=== PATIENT | female | born 1990 | race Caucasian/White ===

== ENCOUNTER 2018-02-09 16:00 | Emergency (ER) | payer MEDICAID ==
[~2018-02-09] VITALS: Ht 160 cm; Wt 76.2 kg
[2018-02-09 16:23] VITALS: Ht 160 cm; Wt 76.2 kg
[2018-02-09 16:47] VITALS: BP 122/76
== END 2018-02-09 16:47 | disposition home or self-care (01) ==
LOC: ED 16:00
DX: M77.02 Medial epicondylitis, left elbow (principal); I88.9 Nonspecific lymphadenitis, unspecified; X58.XXXA Exposure to other specified factors, initial encounter; Y93.64 Activity, baseball; Y92.89 Other specified places as the place of occurrence of the external cause; Y99.8 Other external cause status

== ENCOUNTER 2018-08-12 18:57 | Emergency (ER) | payer SELFPAY ==
[~2018-08-12] VITALS: Ht 162.6 cm; Wt 71.7 kg
[2018-08-12 19:19] VITALS: Ht 162.6 cm; Wt 71.7 kg
[2018-08-12 22:39] VITALS: BP 104/76
== END 2018-08-12 22:39 | disposition home or self-care (01) ==
LOC: ED 18:57
DX: S00.83XA Contusion of other part of head, initial encounter (principal); S00.412A Abrasion of left ear, initial encounter; H92.22 Otorrhagia, left ear; W21.89XA Striking against or struck by other sports equipment, initial encounter; Y93.64 Activity, baseball; Y92.89 Other specified places as the place of occurrence of the external cause; Y99.8 Other external cause status